=== PATIENT | female | born 1965 | race Caucasian/White ===

== ENCOUNTER → 2017-05-12 | Outpatient (CLI) | payer BC ==
--- NOTE | 2017-05-12 12:53 | DIAGNOSTIC IMAGING REPORT ---
TRANSVAG-FEMALE PELVIS HISTORY: 52 years-old Female ENDOMETRIOSIS acute left-sided pelvic pain. History of prior hysterectomy and right oophorectomy. COMPARISON: Pelvic ultrasound 08/10/2013 TECHNIQUE: Multiple real-time sonographic images of the deep pelvic structures were obtained transabdominally and transvaginally assessing grayscale appearance, color and spectral flow FINDINGS: TRANSABDOMINAL: Pelvic structures are not well seen secondary to obscuring bowel gas. TRANSVAGINAL: Left ovary measures 3.3 x 2.0 x 2.2 cm. Cystic lesion within left ovary measures 1.6 x 1.6 x 1.7 cm with peripheral vascularity suggesting dominant follicle. Arterial inflow and venous outflow is seen within the left ovary. There is no significant free pelvic fluid. The uterus and right ovary are surgically absent. IMPRESSION: 1. Surgically absent uterus and right ovary. 2. 1.7 cm cystic lesion of the left ovary suggests dominant follicle. 3. No evidence of ovarian torsion. The above report was generated using voice recognition software. It may contain grammatical, syntax or spelling errors. Electronically signed by: Flavio Treviño M.D. 05/12/2017 12:52 PM Dictated Date/Time: 05/12/2017 12:49 PM
== END | disposition home or self-care (01) ==
LOC: C.ULTR 12:07
PROVIDERS: ATTEND Obstetrics & Gynecology
DX: N80.9 Endometriosis, unspecified (principal)